=== PATIENT | male | born 2000 | race Caucasian/White ===

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

== ENCOUNTER 2019-06-27 20:03 | Emergency (ER) | payer BC ==
[2019-06-27 20:17] VITALS: BP 150/82; PULSE 94
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
== END 2019-06-27 21:20 | disposition home or self-care (01) ==
LOC: JD.ED 20:03
DX: J40 Bronchitis, not specified as acute or chronic (principal); F17.210 Nicotine dependence, cigarettes, uncomplicated; Z91.030 Bee allergy status
CPT/HCPCS: 87804; 99282; 99283

== ENCOUNTER 2023-01-05 18:52 | Emergency (ER) | payer OTHER ==
[2023-01-05 19:09] VITALS: BP 141/83; PULSE 80
== END 2023-01-05 19:56 | disposition left against medical advice (07) ==
LOC: JD.ED 18:52
DX: Z53.21 Procedure and treatment not carried out due to patient leaving prior to being seen by health care provider (principal)